=== PATIENT | female | born 1950 | race Two or more races ===

== ENCOUNTER 2025-06-25 21:15 | Inpatient (IN) | payer MEDICARE, OTHER ==
[~2025-06-25] VITALS: Ht 162.6 cm; Wt 96.2 kg
[2025-06-25 21:25] VITALS: BP 140/40; TEMP 97.9; O2SAT 94
[2025-06-25 22:00] VITALS: BP 140/40; TEMP 97.9; O2SAT 94
[2025-06-25] MEDS ORDERED: Z GUARD REMEDY 4 OZ OINT TP PRN (22:00)
[2025-06-25] MEDS ORDERED: ONDANSETRON HCL/PF 4 MG/2 ML VIAL IVP PRN (22:00)
[2025-06-25] MEDS ORDERED: MAG HYDROX/AL HYDROX/SIMETH 30 ML UDC PO PRN (22:00)
[2025-06-25] MEDS ORDERED: MAGNESIUM HYDROXIDE 30 ML UDC PO PRN (22:00)
[2025-06-25] MEDS: CEFTRIAXONE 1GM BAG (ER ONLY) 50 ML IV ONE (23:57)
[2025-06-26] VITALS (11 sets, daily range): BP systolic 102–148; BP diastolic 40–86; TEMP 97.7–98.3; O2SAT 93–100
[2025-06-26] MEDS: oxyCODONE/APAP (5/325 MG) 1 UDTAB TABLET PO PRN (00:10)
[2025-06-26] MEDS: ENOXAPARIN SODIUM 40 MG/0.4 ML DISP.SYRIN SQ SCH (00:13)
[2025-06-26] MEDS: IV NS 0.9% 1,000 ML IV PRN (00:14)
[2025-06-26] MEDS: CEFTRIAXONE 1 G in IV D5W 50 ML IV SCH (00:16)
[2025-06-26] MEDS: TEMAZEPAM 15 MG CAPSULE PO PRN (01:57)
[2025-06-26] MEDS ORDERED: LISI10TA29 PO (08:03)
[2025-06-26] MEDS ORDERED: TEMA30CA PO (08:03)
[2025-06-26] MEDS ORDERED: METH750T3 PO (08:03)
[2025-06-26] MEDS ORDERED: MULT-447 PO (08:03)
[2025-06-26] MEDS: DOXYCYCLINE 100 MG in IV D5W 100 ML IV SCH (09:16)
[2025-06-26] MEDS: PANTOPRAZOLE 40 MG TABLET.DR PO SCH (09:16)
[2025-06-26 10:24] LABS: CALCIUM, SERUM 8.4 mg/dL (8.5-10.1); CREATININE 0.6 mg/dL (0.6-1.3); PHOSPHORUS 2.8 mg/dL (2.5-4.9); SODIUM SERUM 142.0 mmol/L (136-145); UREA NITROGEN, BLOOD 9.0 mg/dL (7-18)
[2025-06-26] MEDS: ALBUTEROL HALF STRENGTH 1.25 MG/3 ML VIAL.NEB NEB SCH (10:28)
[2025-06-26] MEDS: IPRATROPIUM NEB FS 0.5 MG/2.5 ML AMPUL.NEB NEB SCH (10:28)
[2025-06-26 10:39] LABS: LDL 89.0 mg/dL (0-99)
[2025-06-26] MEDS ORDERED: MIRT45TA79 PO (11:25)
[2025-06-26] MEDS ORDERED: HYDR-4303 PO (11:25)
[2025-06-26] MEDS ORDERED: TRAZ-257 PO (11:26)
[2025-06-26 11:55] LABS: PLATELET COUNT (AUTO) 398 K/uL (150-450); RED BLOOD CELL COUNT(AUTO) 4.58 MIL/uL (4.0-5.2); RED CELL DISTRIBUTION WIDTH 14.3 % (11.5-15.0); WHITE BLOOD COUNT (AUTO) 10.9 K/uL (4.3-11.0)
[2025-06-26] MEDS ORDERED: METHOCARBAMOL (750MG) 750 MG TABLET PO SCH (13:00)
[2025-06-26] MEDS: METHOCARBAMOL (750MG) 750 MG TABLET PO SCH (13:38)
[2025-06-26] MEDS: VANCOMYCIN 1 GM in IV D5W 250ml IV SCH (13:40)
[2025-06-26] MEDS: VANCOMYCIN 500 MG in IV D5W 100ml IV ONE (13:40)
[2025-06-26] MEDS: VANCOMYCIN 1 GM in IV D5W 250 ML IV ONE (13:44)
[2025-06-26] MEDS: TEMAZEPAM 15 MG CAPSULE PO SCH (21:59)
[2025-06-26] MEDS: TRAZODONE 50 MG TABLET PO SCH (22:00)
[2025-06-27] VITALS (9 sets, daily range): BP systolic 124–148; BP diastolic 61–81; TEMP 98.1–100; O2SAT 92–99
[2025-06-27 06:20] LABS: PLATELET COUNT (AUTO) 410 K/uL (150-450); RED BLOOD CELL COUNT(AUTO) 4.52 MIL/uL (4.0-5.2); RED CELL DISTRIBUTION WIDTH 14.7 % (11.5-15.0); WHITE BLOOD COUNT (AUTO) 9.7 K/uL (4.3-11.0)
[2025-06-27 06:32] LABS: CALCIUM, SERUM 8.2 mg/dL (8.5-10.1); CREATININE 0.5 mg/dL (0.6-1.3); PHOSPHORUS 2.6 mg/dL (2.5-4.9); SODIUM SERUM 140.0 mmol/L (136-145); UREA NITROGEN, BLOOD 7.0 mg/dL (7-18)
[2025-06-27] MEDS: LISINOPRIL (10MG) 10 MG TABLET PO SCH (09:04)
[2025-06-27] MEDS: MULTIVIT W/MINERALS 1 TAB TABLET PO SCH (09:04)
[2025-06-27 10:52] LABS: ABG BASE EXCESS 9.2 mmol/L (-2.0-3.0); ABG OXYGEN SATURATION 91.3 % (94.0-98.0); ABG PCO2 49.5 mmHg (32.0-45.0); ABG PH 7.461 (7.350-7.450); ABG PO2 58.1 mmHg (83.0-108.0); ABG TOTAL HEMOGLOBIN 14.0 G/dL (12.0-16.0); FLOW, BLOOD GAS 3.00 L/min (0.00-30.00); FRACTIONATED INSPIRED OXYGEN 32.0 %; SITE, ABG RIGHT RADIAL
[2025-06-27] MEDS: POTASSIUM CHLORIDE 20 MEQ TAB.PRT.SR PO SCH (10:54)
[2025-06-27] MEDS: THERAHONEY GEL 1.5 OZ TUBE TP SCH (11:54)
[2025-06-27] MEDS ORDERED: POTASSIUM CHLORIDE 20 MEQ TAB.PRT.SR PO SCH (12:00)
[2025-06-27] MEDS: DOXYCYCLINE HYCLATE (100 MG) 100 MG TABLET PO SCH (21:12)
[2025-06-28] VITALS (10 sets, daily range): BP systolic 116–138; BP diastolic 56–98; TEMP 97.8–99.8; O2SAT 91–96
[2025-06-28 06:31] LABS: PLATELET COUNT (AUTO) 387 K/uL (150-450); RED BLOOD CELL COUNT(AUTO) 4.25 MIL/uL (4.0-5.2); RED CELL DISTRIBUTION WIDTH 14.7 % (11.5-15.0); WHITE BLOOD COUNT (AUTO) 8.3 K/uL (4.3-11.0)
[2025-06-28 06:53] LABS: CALCIUM, SERUM 8.1 mg/dL (8.5-10.1); CREATININE 0.5 mg/dL (0.6-1.3); SODIUM SERUM 143.0 mmol/L (136-145); UREA NITROGEN, BLOOD 5.0 mg/dL (7-18)
[2025-06-28] MEDS: POTASSIUM CHLORIDE 20 MEQ TAB.PRT.SR PO SCH (08:35)
[2025-06-28] MEDS ORDERED: DOXYCYCLINE HYCLATE (100 MG) 100 MG TABLET PO SCH (09:00)
[2025-06-28] MEDS: POLYETHYLENE GLYCOL 3350 17 GM POWD.PACK PO SCH (13:00)
[2025-06-28] MEDS: SENNOSIDES/DOCUSATE SODIUM 1 TAB TABLET PO SCH (13:00)
[2025-06-28] MEDS: PREGABALIN 25 MG CAPSULE PO SCH (14:17)
[2025-06-29 04:00] VITALS: BP 124/65; TEMP 98.1; O2SAT 92
[2025-06-29 05:51] LABS: PLATELET COUNT (AUTO) 385 K/uL (150-450); RED BLOOD CELL COUNT(AUTO) 4.49 MIL/uL (4.0-5.2); RED CELL DISTRIBUTION WIDTH 15.1 % (11.5-15.0); WHITE BLOOD COUNT (AUTO) 9.5 K/uL (4.3-11.0)
[2025-06-29 06:07] LABS: CALCIUM, SERUM 8.4 mg/dL (8.5-10.1); CREATININE 0.5 mg/dL (0.6-1.3); PHOSPHORUS 3.4 mg/dL (2.5-4.9); SODIUM SERUM 140.0 mmol/L (136-145); UREA NITROGEN, BLOOD 9.0 mg/dL (7-18)
[2025-06-29 10:12] VITALS: BP 131/52; TEMP 98.4; O2SAT 95
[2025-06-29] MEDS: LACTULOSE 10 G/15 ML UDC (PYXIS) PO SCH (11:30)
[2025-06-29 16:30] VITALS: BP 106/59; TEMP 97.3
[2025-06-29 20:00] VITALS: BP 124/67; TEMP 97.7; O2SAT 95
[2025-06-29 20:07] VITALS: O2SAT 91
[2025-06-29 20:23] VITALS: O2SAT 93
[2025-06-30 04:00] VITALS: BP 103/75; TEMP 97.8; O2SAT 97
[2025-06-30 07:50] LABS: PLATELET COUNT (AUTO) 421 K/uL (150-450); RED BLOOD CELL COUNT(AUTO) 4.42 MIL/uL (4.0-5.2); RED CELL DISTRIBUTION WIDTH 14.6 % (11.5-15.0); WHITE BLOOD COUNT (AUTO) 7.3 K/uL (4.3-11.0)
[2025-06-30 08:00] VITALS: BP 102/66; TEMP 97.8; O2SAT 95
[2025-06-30 08:14] LABS: CALCIUM, SERUM 8.9 mg/dL (8.5-10.1); CREATININE 0.5 mg/dL (0.6-1.3); PHOSPHORUS 3.8 mg/dL (2.5-4.9); SODIUM SERUM 142.0 mmol/L (136-145); UREA NITROGEN, BLOOD 8.0 mg/dL (7-18)
[2025-06-30] MEDS: ACETAMINOPHEN 325 MG TABLET PO PRN (09:33)
[2025-06-30 13:49] LABS: ABG BASE EXCESS 12.0 mmol/L (-2.0-3.0); ABG OXYGEN SATURATION 96.1 % (94.0-98.0); ABG PCO2 56.0 mmHg (32.0-45.0); ABG PH 7.452 (7.350-7.450); ABG PO2 77.8 mmHg (83.0-108.0); ABG TOTAL HEMOGLOBIN 13.8 G/dL (12.0-16.0); FLOW, BLOOD GAS 5.00 L/min (0.00-30.00); FRACTIONATED INSPIRED OXYGEN 40.0 %; SITE, ABG RIGHT RADIAL
[2025-06-30 16:00] VITALS: BP 112/75; TEMP 98.4; O2SAT 95
[2025-06-30 20:00] VITALS: BP 130/81; TEMP 98.3; O2SAT 95
[2025-06-30 20:26] VITALS: O2SAT 94
[2025-06-30 20:40] VITALS: O2SAT 95
[2025-07-01 04:46] VITALS: BP 132/75; TEMP 98.7; O2SAT 100
[2025-07-01 07:12] LABS: PLATELET COUNT (AUTO) 471 K/uL (150-450); RED BLOOD CELL COUNT(AUTO) 4.30 MIL/uL (4.0-5.2); RED CELL DISTRIBUTION WIDTH 14.5 % (11.5-15.0); WHITE BLOOD COUNT (AUTO) 7.9 K/uL (4.3-11.0)
[2025-07-01 07:28] VITALS: O2SAT 99
[2025-07-01 08:00] VITALS: BP 106/66; TEMP 97.6; O2SAT 95
[2025-07-01 08:04] LABS: CALCIUM, SERUM 8.8 mg/dL (8.5-10.1); CREATININE 0.5 mg/dL (0.6-1.3); PHOSPHORUS 4.0 mg/dL (2.5-4.9); SODIUM SERUM 140.0 mmol/L (136-145); UREA NITROGEN, BLOOD 7.0 mg/dL (7-18)
[2025-07-01 10:12] LABS: COCCIDIOIDES Abs, IgG,EIA 0.4 EIA Units (.); COCCIDIOIDES Abs, IgM,EIA 0.2 EIA Units (.)
[2025-07-01 16:00] VITALS: BP 105/67; TEMP 97.7; O2SAT 95
[2025-07-01 16:08] LABS: LEGIONELLA PNEUMOPHILIA AB Non Reactive (Non Reactive)
[2025-07-01] MEDS: PREGABALIN 25 MG CAPSULE PO SCH (16:44)
[2025-07-01 19:40] VITALS: O2SAT 99
[2025-07-01 20:00] VITALS: BP 106/61; TEMP 98.6; O2SAT 95
[2025-07-01 20:07] LABS: *MYCOPLASMA PNEUMONIAE IgG 880 U/mL (0-99); *MYCOPLASMA PNEUMONIAE IgM <770 U/mL (0-769)
[2025-07-01] MEDS: HYDROCODONE/APAP 5/325MG TABLET PO PRN (23:23)
[2025-07-02] VITALS (8 sets, daily range): BP systolic 100–125; BP diastolic 55–71; TEMP 97.7–98.8; O2SAT 92–98
[2025-07-02 06:58] LABS: PLATELET COUNT (AUTO) 474 K/uL (150-450); RED BLOOD CELL COUNT(AUTO) 4.50 MIL/uL (4.0-5.2); RED CELL DISTRIBUTION WIDTH 14.8 % (11.5-15.0); WHITE BLOOD COUNT (AUTO) 9.0 K/uL (4.3-11.0)
[2025-07-02 07:11] LABS: CALCIUM, SERUM 8.9 mg/dL (8.5-10.1); CREATININE 0.5 mg/dL (0.6-1.3); PHOSPHORUS 4.2 mg/dL (2.5-4.9); SODIUM SERUM 138.0 mmol/L (136-145); UREA NITROGEN, BLOOD 10.0 mg/dL (7-18)
[2025-07-02] MEDS: ENSURE ENLIVE 237 ML LIQUID (VANILLA) PO SCH (17:00)
[2025-07-02] MEDS: ARGININE/GLUTAMINE/CALCIUM BMB 1 EACH POWD.PACK PO SCH (17:00)
[2025-07-02] MEDS: APIXABAN 5 MG TABLET PO SCH (18:59)
[2025-07-03 04:00] VITALS: BP 107/69; TEMP 97.5; O2SAT 93
[2025-07-03 08:00] VITALS: BP 92/62; TEMP 98.1; O2SAT 92
[2025-07-03] MEDS ORDERED: ALBUTEROL HALF STRENGTH 1.25 MG/3 ML VIAL.NEB NEB PRN (09:00)
[2025-07-03 16:00] VITALS: BP 112/72; TEMP 97.9; O2SAT 93
[2025-07-03 20:00] VITALS: BP 104/55; TEMP 97.9; O2SAT 93
[2025-07-04 04:00] VITALS: BP 106/63; TEMP 98.1; O2SAT 94
[2025-07-04 08:00] VITALS: BP 108/61; TEMP 98.4; O2SAT 95
[2025-07-04 09:24] VITALS: BP 108/61
== END 2025-07-04 14:55 | DRG 177 ==
LOC: TELE1 21:30 → MEDSG1 06-27 10:06
PROVIDERS: ADMIT Nurse Practitioner Acute Care; ATTEND Nurse Practitioner Family
DX: J15.69 Pneumonia due to other Gram-negative bacteria (principal); I50.33 Acute on chronic diastolic (congestive) heart failure; J96.21 Acute and chronic respiratory failure with hypoxia; I82.401 Acute embolism and thrombosis of unspecified deep veins of right lower extremity; J84.9 Interstitial pulmonary disease, unspecified; L89.156 Pressure-induced deep tissue damage of sacral region; I11.0 Hypertensive heart disease with heart failure; J44.0 Chronic obstructive pulmonary disease with (acute) lower respiratory infection; L03.115 Cellulitis of right lower limb; Z68.33 Body mass index [BMI] 33.0-33.9, adult; M06.9 Rheumatoid arthritis, unspecified; Z20.822 Contact with and (suspected) exposure to COVID-19; Z96.651 Presence of right artificial knee joint; Z87.891 Personal history of nicotine dependence; R26.9 Unspecified abnormalities of gait and mobility; E66.01 Morbid (severe) obesity due to excess calories; E87.6 Hypokalemia
CPT/HCPCS: 36415; 36600; 71045-TC; 71250-TC; 80048-TC; 80061-TC; 80202-TC; 82803-TC; 83735-TC; 83880; 84100-TC; 84443-TC; 85025-TC; 86713; 86738; 87081-TC; 87102-TC; 93307-TC; 93971-TC; 94640-TC; 94760-TC; 94799-TC; 97110-TC; 97116-TC; 97530-TC; A6254; G0378; J0696; J1650; J3373; J3490; J7030; J7060